=== PATIENT | female | born 1950 | race African-American/Black ===

== ENCOUNTER → 2018-06-02 | Outpatient (CLI) | payer OTHER ==
--- NOTE | 2018-06-02 13:07 | KCIC ---
EXAM: Thoracic spine, 3 views. HISTORY: Pain. COMPARISON: None. FINDINGS: Frontal and lateral views of the thoracic spine are obtained. There is minimal S-shaped thoracic scoliosis. There is slight increased thoracic kyphosis. There is no fracture. There is endplate remodeling and spurring at multiple levels. No suspicious lytic coarse chronic osseous lesion is seen. There is cervical spinal fusion instrumentation at the superior margin of the [id number]. IMPRESSION: 1. Multilevel degenerative change and mild S-shaped scoliosis. 2. No acute osseous finding. Electronically signed by: Aubrie Everett MD (06/02/2018 1:03 PM) [place] [id number]
== END | disposition home or self-care (01) ==
LOC: KCIC 12:29
DX: M41.84 Other forms of scoliosis, thoracic region (principal); M47.894 Other spondylosis, thoracic region
CPT/HCPCS: 72072

== ENCOUNTER → 2019-03-01 | Outpatient (CLI) | payer OTHER ==
--- NOTE | 2019-03-02 08:37 | KCIC ---
Thoracic spine, 3 views, 03/01/2019: HISTORY: Pain There is moderate multilevel hypertrophic degenerative change particularly in the lower thoracic spine. There is a slight scoliosis. No fracture or dislocation is identified. There has been an anterior spinal fusion in the lower cervical region with a fixation plate and screws in place from C4 through C7. The paraspinous soft tissues are unremarkable. IMPRESSION: 1. Moderate multilevel hypertrophic degenerative change in the thoracic spine. 2. No acute bony abnormality is detected. Electronically signed by: Obinna Hernandez MD (03/02/2019 8:34 AM) [facility]
== END | disposition home or self-care (01) ==
LOC: KCIC 10:56
PROVIDERS: ATTEND Nurse Practitioner Family
DX: M47.814 Spondylosis without myelopathy or radiculopathy, thoracic region (principal); M41.84 Other forms of scoliosis, thoracic region; M89.38 Hypertrophy of bone, other site
CPT/HCPCS: 72072